=== PATIENT | male | born 1945 | race Caucasian/White ===

== ENCOUNTER 2018-04-16 22:28 | Inpatient (IN) | payer MEDICARE, OTHER ==
[2018-04-16 23:25] LABS: ADD MAN DIFF? NO
[2018-04-16 23:27] LABS: BASOPHILS % 0.3 % (0.0-2.0); EOSINOPHILS # 0.1 10^3/ul (0.0-0.5); EOSINOPHILS % 1.1 % (0.0-7.0); HEMATOCRIT 39.4 % (42.0-52.0); HEMOGLOBIN 12.6 g/dl (14.0-18.0); LYMPHOCYTES % 30.5 % (15.0-51.0); MEAN CORPUSCULAR HEMOGLOBIN 29.9 pg (29.0-33.0); MEAN CORPUSCULAR VOLUME 93.6 fl (82.0-101.0); MEAN PLATELET VOLUME 9.3 fl (7.4-10.4); MONOCYTES % 10.3 % (0.0-11.0); NEUTROPHIL # 5.6 10^3/ul (1.6-7.5); NEUTROPHILS % 57.5 % (39.0-77.0); PLATELET COUNT 241 10^3/UL (140-415); RED BLOOD COUNT 4.21 10^6/ul (4.70-6.10); RED CELL DISTRIBUTION WIDTH 13.4 % (11.5-14.5)
[2018-04-16 23:27] LABS: WHITE BLOOD COUNT 9.7 10^3/ul (4.8-10.8)
[2018-04-16 23:55] LABS: ALANINE AMINOTRANSFERASE 25 IU/L (13-69); ALBUMIN 3.7 g/dl (3.3-4.9); ALKALINE PHOSPHATASE 68 IU/L (42-121); ANION GAP 15 (8-16); ASPARTATE AMINO TRANSFERASE 33 IU/L (15-46); BILIRUBIN,INDIRECT 0.3 mg/dl (0-1.1); BILIRUBIN,TOTAL 0.3 mg/dl (0.2-1.3); BLOOD UREA NITROGEN 29 mg/dl (7-20); CARBON DIOXIDE 27 mmol/L (21-31); CHLORIDE 102 mmol/L (97-110); GLUCOSE 188 mg/dl (70-220); POTASSIUM 4.2 mmol/L (3.5-5.1); SODIUM 140 mmol/L (135-144); TOTAL PROTEIN 7.8 g/dl (6.1-8.1)
[2018-04-17 00:06] LABS: B-TYPE NATRIURETIC PEPTIDE 671 PG/ML (0-125); TROPONIN-I 0.013 ng/ml (0.000-0.120)
[2018-04-17] MEDS ORDERED: BISACODYL (EC) 5 MG TAB PO (02:00)
[2018-04-17] MEDS ORDERED: NACL 0.9% 3 ML SYG IV (02:00)
[2018-04-17] MEDS ORDERED: morphine 2 MG INJ IV (02:00)
[2018-04-17] MEDS ORDERED: DOCUSATE SODIUM 100 MG CAP PO (02:00)
[2018-04-17] MEDS ORDERED: NITROGLYCERIN (SL) 0.4 MG TAB SL (02:00)
[2018-04-17] MEDS: hydrALAzine 20 MG INJ IV ×2 (03:36→11:34)
[2018-04-17] MEDS: SOD CHLORIDE 0.9% 1,000 ML IV ×2 (05:11→09:14)
[2018-04-17] MEDS: AMLODIPINE 10 MG TAB PO (05:11)
[2018-04-17] MEDS: INSULIN GLARGINE [LANTus] (100 UNITS/ML) SYG SC (05:21)
[2018-04-17 06:04] LABS: ADD MAN DIFF? NO
[2018-04-17 06:12] LABS: BASOPHILS % 0.4 % (0.0-2.0); EOSINOPHILS # 0.1 10^3/ul (0.0-0.5); EOSINOPHILS % 0.7 % (0.0-7.0); HEMATOCRIT 35.2 % (42.0-52.0); HEMOGLOBIN 11.7 g/dl (14.0-18.0); LYMPHOCYTES # 2.1 10^3/ul (0.8-2.9); LYMPHOCYTES % 21.6 % (15.0-51.0); MEAN CORPUSCULAR HEMOGLOBIN 30.5 pg (29.0-33.0); MEAN CORPUSCULAR HGB CONC 33.2 g/dl (32.0-37.0); MEAN CORPUSCULAR VOLUME 91.7 fl (82.0-101.0); MEAN PLATELET VOLUME 9.3 fl (7.4-10.4); MONOCYTE # 0.9 10^3/ul (0.3-0.9); MONOCYTES % 9.6 % (0.0-11.0); NEUTROPHIL # 6.5 10^3/ul (1.6-7.5); NEUTROPHILS % 67.4 % (39.0-77.0); PLATELET COUNT 221 10^3/UL (140-415); RED BLOOD COUNT 3.84 10^6/ul (4.70-6.10); RED CELL DISTRIBUTION WIDTH 13.5 % (11.5-14.5)
[2018-04-17 06:12] LABS: WHITE BLOOD COUNT 9.6 10^3/ul (4.8-10.8)
[2018-04-17 06:36] LABS: HEMOGLOBIN A1C 6.4 % (0-5.9)
[2018-04-17 06:38] LABS: ALANINE AMINOTRANSFERASE 16 IU/L (13-69); ALBUMIN 3.6 g/dl (3.3-4.9); ALBUMIN/GLOBULIN RATIO 1.09; ALKALINE PHOSPHATASE 54 IU/L (42-121); ANION GAP 11 (8-16); ASPARTATE AMINO TRANSFERASE 23 IU/L (15-46); BILIRUBIN,INDIRECT 0.4 mg/dl (0-1.1); BILIRUBIN,TOTAL 0.4 mg/dl (0.2-1.3); BLOOD UREA NITROGEN 24 mg/dl (7-20); CALCIUM 8.3 mg/dl (8.4-10.2); CARBON DIOXIDE 25 mmol/L (21-31); CHLORIDE 110 mmol/L (97-110); CREATININE 1.29 mg/dl (0.61-1.24); GLUCOSE 130 mg/dl (70-220); SODIUM 142 mmol/L (135-144); TOTAL PROTEIN 6.9 g/dl (6.1-8.1)
[2018-04-17 06:39] LABS: C-REACTIVE PROTEIN 1.2 mg/dl (0.0-0.9)
[2018-04-17 06:40] LABS: ETHANOL < 10.0 mg/dl
[2018-04-17 06:46] LABS: CK INDEX 0.3; CREATINE KINASE 234 IU/L (23-200); TROPONIN-I 0.018 ng/ml (0.000-0.120)
[2018-04-17 06:47] LABS: CHOL/HDL RATIO 3.4 RATIO; HDL CHOLESTEROL 38 mg/dl (31-75); LDL CHOLESTEROL,CALCULATED 78 mg/dl; TRIGLYCERIDES 75 mg/dl (0-149)
[2018-04-17 06:47] LABS: CHOLESTEROL 131 mg/dl (100-200); MAGNESIUM 1.8 mg/dl (1.7-2.5)
[2018-04-17 07:05] LABS: THYROID STIMULATING HORMONE 0.997 MIU/L (0.465-4.680)
[2018-04-17 07:38] LABS: ERYTHROCYTE SEDIMENTATION RATE 46 mm/Hr (0-20)
[2018-04-17] MEDS: INSULIN ASPART [NOVOLOG] 3 ML PEN SC ×4 (07:55→20:15)
[2018-04-17 08:13] LABS: D-DIMER 1267.37 ng/ml (<460)
[2018-04-17 08:42] LABS: LACTIC ACID 1.1 mmol/L (0.5-2.0)
[2018-04-17 09:05] LABS: FREE T3 4.13 pg/ml (2.77-5.27); FREE T4 (FREE THYROXINE) 1.55 ng/dl (0.78-2.44)
[2018-04-17 09:58] LABS: ADD UMIC YES; UR ASCORBIC ACID NEGATIVE (NEGATIVE); UR BILIRUBIN (Dip) NEGATIVE (NEGATIVE); UR BLOOD (Dip) NEGATIVE (NEGATIVE); UR CLARITY CLEAR (CLEAR); UR COLOR STRAW (YELLOW); UR GLUCOSE (Dip) NEGATIVE (NEGATIVE); UR KETONES (Dip) NEGATIVE (NEGATIVE); UR LEUKOCYTE ESTERASE (Dip) NEGATIVE Leu/ul (NEGATIVE); UR NITRITE (Dip) NEGATIVE (NEGATIVE); UR RBC 3 /HPF (0-5); UR TOTAL PROTEIN (Dip) 2+ mg/dl (NEGATIVE); UR UROBILINOGEN (Dip) NEGATIVE (NEGATIVE); UR WBC 0 /HPF (0-5)
[2018-04-17 10:23] LABS: AMPHETAMINE/METHAMPHETAMINE Negative (NEGATIVE); BARBITURATES Negative (NEGATIVE); BENZODIAZEPINES Negative (NEGATIVE); CANNABINOIDS Negative (NEGATIVE); COCAINE Negative (NEGATIVE); OPIATES Negative (NEGATIVE)
[2018-04-17 12:50] LABS: CREATINE KINASE 183 IU/L (23-200)
[2018-04-17 13:06] LABS: CK INDEX 0.3; CK-MB 0.53 ng/ml (0.0-2.4); TROPONIN-I < 0.012 ng/ml (0.000-0.120)
[2018-04-17] MEDS: ATORVASTATIN 10 MG TAB PO (20:14)
[2018-04-18] MEDS: ACCU-CHEK XX (00:21)
[2018-04-18] MEDS: INSULIN ASPART [NOVOLOG] 3 ML PEN SC ×4 (08:24→21:58)
[2018-04-18] MEDS: AMLODIPINE 10 MG TAB PO (08:30)
[2018-04-18] MEDS: ASPIRIN (EC) 81 MG TAB PO (13:42)
[2018-04-18 18:21] LABS: ANA SCREEN POSITIVE (NEGATIVE)
[2018-04-18 19:51] LABS: ANA PATTERN HOMOGENEOUS
[2018-04-18] MEDS: METOPROLOL 25 MG TAB PO (21:53)
[2018-04-18] MEDS: ATORVASTATIN 10 MG TAB PO (21:54)
[2018-04-18] MEDS ORDERED: morphine LIQ (10 MG/5 ML) CUP PO (22:00)
[2018-04-19] MEDS: ONDANSETRON 4 MG INJ IV (01:42)
[2018-04-19] MEDS: ACCU-CHEK XX (02:00)
[2018-04-19] MEDS: INSULIN ASPART [NOVOLOG] 3 ML PEN SC ×4 (08:21→20:39)
[2018-04-19] MEDS: ASPIRIN (EC) 81 MG TAB PO (08:51)
[2018-04-19] MEDS: METOPROLOL 25 MG TAB PO ×2 (08:52→20:31)
[2018-04-19] MEDS: AMLODIPINE 10 MG TAB PO (08:52)
[2018-04-19 13:47] LABS: INR 0.98; PROTIME 13.1 Sec (11.9-14.9)
[2018-04-19 13:47] LABS: PLATELET COUNT 262 10^3/UL (140-415)
[2018-04-19 13:48] LABS: PARTIAL THROMBOPLASTIN TIME 30.2 Sec (23.0-35.0)
[2018-04-19 14:00] LABS: HIV 1&2 ANTIBODY NEGATIVE (NEGATIVE)
[2018-04-19 14:34] LABS: THROMBIN TIME 15.5 SEC (13.8-19.1)
[2018-04-19 15:39] LABS: RAPID PLASMA REAGIN NONREACTIVE (NR)
[2018-04-19] MEDS: ATORVASTATIN 10 MG TAB PO (20:31)
[2018-04-20] MEDS: ACCU-CHEK XX (02:33)
[2018-04-20] MEDS: INSULIN ASPART [NOVOLOG] 3 ML PEN SC ×4 (07:55→20:29)
[2018-04-20] MEDS: AMLODIPINE 10 MG TAB PO (08:33)
[2018-04-20] MEDS: METOPROLOL 25 MG TAB PO ×2 (08:33→20:33)
[2018-04-20] MEDS: ASPIRIN (EC) 81 MG TAB PO (08:35)
[2018-04-20 14:52] LABS: TOTAL PROTEIN,CSF 111 mg/dl (12-60)
[2018-04-20 14:52] LABS: GLUCOSE,CSF 82 mg/dl (50-80)
[2018-04-20 15:02] LABS: CSF MN% 66.6 %; CSF PMN% 33.4 %; CSF RBC 0 /uL (0-0)
[2018-04-20 15:12] LABS: CSF CLARITY CLEAR
[2018-04-20 15:12] LABS: CSF COLOR COLORLESS
[2018-04-20 15:13] LABS: CSF#TUBES REC'D 3
[2018-04-20 15:26] LABS: CSF#TUBE COUNT TUBE#3
[2018-04-20 15:37] LABS: CSF WBC 6 /cmm (0-10)
[2018-04-20] MEDS: ATORVASTATIN 10 MG TAB PO (20:32)
[2018-04-20] MEDS: ACETAMINOPHEN 325 MG TAB PO (22:29)
[2018-04-21] MEDS: ACCU-CHEK XX (02:00)
[2018-04-21] MEDS: INSULIN ASPART [NOVOLOG] 3 ML PEN SC ×2 (07:49→12:21)
[2018-04-21] MEDS: ASPIRIN (EC) 81 MG TAB PO (08:07)
[2018-04-21] MEDS: AMLODIPINE 10 MG TAB PO (08:08)
[2018-04-21] MEDS: METOPROLOL 25 MG TAB PO (08:08)
[2018-04-21] MEDS: ACETAMINOPHEN 325 MG TAB PO (08:23)
[2018-04-21 12:56] LABS: MYELOPEROXIDASE ANTIBODY <1.0 AI; PROTEINASE-3 ANTIBODY <1.0 AI
[2018-04-21] MEDS ORDERED: GLUCOSE GEL 15 GRAM TUBE BUCCAL (13:00)
[2018-04-21] MEDS ORDERED: DEXTROSE 50% 50 ML SYRINGE IV ×2 (13:00)
[2018-04-21] MEDS ORDERED: INSULIN GLARGINE [LANTus] (100 UNITS/ML) SYG SC (13:00)
[2018-04-21] MEDS ORDERED: GLUCOSE GEL 15 GRAM TUBE PO ×2 (13:00)
[2018-04-21] MEDS ORDERED: GLUCAGON 1 MG INJ IM (13:00)
[2018-04-21 13:42] LABS: ANCA SCREEN NEGATIVE (NEGATIVE)
[2018-04-21] MEDS ORDERED: ACCU-CHEK XX (17:25)
[2018-04-21] MEDS ORDERED: metFORMIN 500 MG TAB PO (17:50)
[2018-04-22 13:36] LABS: ANTI-DNA (DOUBLE STRANDED) <95 U/mL (< 301)
[2018-04-22 16:36] LABS: WEST NILE VIRUS ANTIBODY (IGG) <1.30 index; WEST NILE VIRUS ANTIBODY (IGM) <0.90 index
== END 2018-04-21 13:30 | DRG 65 ==
LOC: E/R 22:28 → TEL 04-17 00:57
PROC: 009U3ZX Drainage of Spinal Canal, Percutaneous Approach, Diagnostic (ICD-10-PCS; principal; 2018-04-20)
PROC: B01BYZZ Fluoroscopy of Spinal Cord using Other Contrast (ICD-10-PCS; 2018-04-20)
DX: I63.50 Cerebral infarction due to unspecified occlusion or stenosis of unspecified cerebral artery (principal); N17.9 Acute kidney failure, unspecified; R56.9 Unspecified convulsions; E86.0 Dehydration; I12.9 Hypertensive chronic kidney disease with stage 1 through stage 4 chronic kidney disease, or unspecified chronic kidney disease; N18.9 Chronic kidney disease, unspecified; E11.22 Type 2 diabetes mellitus with diabetic chronic kidney disease; Z79.4 Long term (current) use of insulin
CPT/HCPCS: 36415; 70551; 71045; 80053; 80061; 80307; 81001; 82550; 82553; 82945; 82962; 83036; 83605; 83735; 83880; 84157; 84439; 84443; 84481; 84484; 85025; 85049; 85378; 85610; 85651; 85670; 85730; 86021; 86038; 86140; 86226; 86592; 86703; 86788; 86789; 87070; 87086; 87400; 89051; 93005; 93306; 93880; 93970; 95819; 97161; 99285-25; G0378

== ENCOUNTER 2018-09-17 12:20 | Emergency (ER) | payer MEDICARE, OTHER ==
[2018-09-17 13:37] LABS: ADD MAN DIFF? NO
[2018-09-17 13:38] LABS: BASOPHILS % 0.6 % (0.0-2.0); EOSINOPHILS # 0.1 10^3/ul (0.0-0.5); EOSINOPHILS % 1.6 % (0.0-7.0); HEMATOCRIT 38.2 % (42.0-52.0); HEMOGLOBIN 12.3 g/dl (14.0-18.0); LYMPHOCYTES # 2.3 10^3/ul (0.8-2.9); LYMPHOCYTES % 34.2 % (15.0-51.0); MEAN CORPUSCULAR HEMOGLOBIN 30.6 pg (29.0-33.0); MEAN CORPUSCULAR HGB CONC 32.2 g/dl (32.0-37.0); MEAN PLATELET VOLUME 10.3 fl (7.4-10.4); MONOCYTE # 0.7 10^3/ul (0.3-0.9); NEUTROPHIL # 3.5 10^3/ul (1.6-7.5); PLATELET COUNT 191 10^3/UL (140-415); RED BLOOD COUNT 4.02 10^6/ul (4.70-6.10); RED CELL DISTRIBUTION WIDTH 12.7 % (11.5-14.5)
[2018-09-17 13:38] LABS: WHITE BLOOD COUNT 6.7 10^3/ul (4.8-10.8)
[2018-09-17 14:00] LABS: INR 1.01; PROTIME 13.4 Sec (11.9-14.9)
[2018-09-17 14:03] LABS: ANION GAP 11 (5-13); BLOOD UREA NITROGEN 42 mg/dl (7-20); CALCIUM 8.7 mg/dl (8.4-10.2); CARBON DIOXIDE 24 mmol/L (21-31); CHLORIDE 106 mmol/L (97-110); CREATININE 2.09 mg/dl (0.61-1.24); GLUCOSE 220 mg/dl (70-220); SODIUM 141 mmol/L (135-144)
[2018-09-17 14:15] LABS: B-TYPE NATRIURETIC PEPTIDE 389 PG/ML (0-125); TROPONIN-I < 0.012 ng/ml (0.000-0.120)
[2018-09-17] MEDS: METHYLPREDNISOLONE 125 MG INJ IV (15:47)
[2018-09-17] MEDS: IPRATROPIUM (NEB) 0.5 MG/2.5 ML AMP INH (15:53)
[2018-09-17] MEDS: ALBUTEROL 0.5% (NEB) 2.5 MG/0.5 ML AMP INH (15:54)
== END 2018-09-17 17:19 | disposition home or self-care (01) ==
LOC: E/R 17:19
DX: J40 Bronchitis, not specified as acute or chronic (principal); D64.9 Anemia, unspecified; I12.9 Hypertensive chronic kidney disease with stage 1 through stage 4 chronic kidney disease, or unspecified chronic kidney disease; N18.9 Chronic kidney disease, unspecified; E11.22 Type 2 diabetes mellitus with diabetic chronic kidney disease; Z79.4 Long term (current) use of insulin; Z79.82 Long term (current) use of aspirin; Z86.73 Personal history of transient ischemic attack (TIA), and cerebral infarction without residual deficits
CPT/HCPCS: 36415; 71045; 80048; 83880; 84484; 85025; 85610; 93005; 94640; 94644; 96374; 99285-25